=== PATIENT | male | born 1950 | race Caucasian/White ===

== ENCOUNTER → 2017-02-28 | Outpatient (CLI) | payer OTHER ==
--- NOTE | ~2017-02-28 | 24HR ---
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
== END ==
LOC: CV 10:10
DX: I42.2 Other hypertrophic cardiomyopathy (principal)

== ENCOUNTER 2017-11-14 14:52 | Inpatient (IN) | payer OTHER ==
[2017-11-14] VITALS (28 sets, daily range): BP systolic 88–136; BP diastolic 60–115
[~2017-11-14] VITALS: Ht 180.3 cm; Wt 92.6 kg
--- NOTE | ~2017-11-14 | EKG ---
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
--- NOTE | ~2017-11-14 | D ---
[facility] [place] [address] DISCHARGE SUMMARY Name: LATASHA APPLE Room #: 204-P [facility] IN M.R.#: [id number] Admission: 11/14/17 Attend Phys: Nicanor Carlson MD Discharge: 11/25/17 Date of : 52 Report #: [id number] THIS REPORT FOR: //name// CC: FAM unknown Nicanor Carlson Uday Velizen DISCHARGE DIAGNOSES: 1. Sustained ventricular tachycardia. 2. Apical hypertrophic cardiomyopathy. PROCEDURES PERFORMED: 1. VT ablation. 2. Dual chamber [employer] Raul ICD implantation for secondary prevention of sudden cardiac . HISTORY OF PRESENT ILLNESS: The patient is a 67-year-old patient who I have seen in the outpatient setting for consultation for ICD implantation. He has a history of apical hypertrophic cardiomyopathy. 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 At that time, I recommended ICD implantation, but he declined. On the day of admission, the patient called saying that he had been experiencing palpitations for 4 days, which was of new onset. He did not have any presyncope or syncope. When he came into the clinic, he was found to be in sustained wide complex tachycardia and was directly admitted to the ICU. He was in the sustained arrhythmia and was given 12 of adenosine, which interestingly did result in brief termination of the arrhythmia. The patient was monitored in the ICU and taken for an EP study. The EP study demonstrated that the patient was clearly in ventricular tachycardia and a VT ablation was performed using a retroaortic axis. The patient was in sustained VT, and we mapped the VT using a PentaRay catheter, and this was clearly coming from his apical aneurysm. 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 Extensive ablation at the site eventually resulted in termination of the ventricular tachycardia. Pace MAPS at this site were 12/12, but it did not look like I was actually entraining the tachycardia. I think this was likely a focal ventricular tachycardia secondary to triggered automaticity. The ventricular tachycardia would terminate, and then, I would perform ventricular pacing maneuvers or ventricular stimulation and the VT would come back. I would go back to the same location and after a few seconds of burning, the VT would go away. I performed extensive ablations at this location at 50 nunez, but the VT would come back, although it was at times difficult to induce and required up to triple ventricular extrastimuli. I did induce another ventricular arrhythmia that was a ventricular flutter that fortunately I could pace At this point, we [facility] [address] [place] [address] DISCHARGE SUMMARY Name: AMBIKALATASHA Room #: 204-P DIS IN M.R.#: [id number] Admission: 11/14/17 Attend Phys: Nicanor Carlson MD Discharge: 11/25/17 Date of : 52 Report #: [id number] performed extensive ablation, and he was no longer in sustained VT and therefore the procedure was concluded. Of note, I did have issues obtaining venous access into the right femoral vein. I got a sheath into the right femoral vein and performed a venogram, and it appeared that the vein had dissected. So for future procedures, this needs to be taken into account, and plans are to evaluate this in the future as an outpatient. After the ablation, I decided to place the patient on sotalol therapy as I thought that he was high risk of having recurrent arrhythmias, and overnight, he again had recurrent VT. I started him on IV amiodarone and stop the sotalol. Eventually, his rhythm is improved, and he underwent dual chamber [employer] Jose Raul ICD implantation. Post-ICD implant, his chest x-ray is fine. His device was interrogated and found to be functioning normally. The patient did stay in the hospital for a prolonged period of time requiring loading of IV amiodarone. When I would turn off the IV amiodarone, he would have nonsustained VT anywhere from 5-10 beats in duration. On 11/22, I put him back on IV amiodarone at 1 mg per minute continuously and turned this off on 11/23 at 10:00 p.m. and watched him until 11/25. He had been on oral amiodarone 400 b.i.d., and other than ventricular bigeminy and trigeminy, he had no other arrhythmias noted. As such, he was deemed stable for discharge home. He will go home on amiodarone 400 b.i.d. I did discuss that we will need to monitor amiodarone for toxicities including pulmonary, thyroid and liver. The family understands this. I did discuss his case with Dr. Negro at [facility] for further evaluation for advanced therapies. They will schedule an outpatient clinic visit with him next week. I discussed with the patient that I did not want him driving for the time being until we can ensure that his arrhythmias are stable, and we will see him back in clinic next week. <ELECTRONICALLY SIGNED> By: Nicanor Carlson MD 11/25/17 1308 0917 1159 Nicanor Carlson MD /kraig
--- NOTE | ~2017-11-14 | EKG ---
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 Mgr: KEYSHA : 1950 Requested By: Nicanor Carlson Order Number: [id number] MD: Kevon Guerrero Measurements Intervals [place] Rate: 92 P: 11 OH: 220 QRS: 4 QRSD: 113 T: 102 QT: 435 QTc: 539 Interpretive Statements Atrial paced rhythm Frequent PVCs Prolonged OH interval Probable left ventricular hypertrophy Nonspecific T abnrm, anterolateral leads Compared to ECG 11/20/2017 10:19:02 Electronically Signed On 11-22-2017 17:23:25 CDT by Kevon Guerrero [email or web address] <ELECTRONICALLY SIGNED> By: Kevon Guerrero MD 11/22/17 1723 0910 Kevon Guerrero MD /EPI
--- NOTE | ~2017-11-14 | EKG ---
[address] [address] ELECTROCARDIOGRAM REPORT Name: AMBIKALATASHA Room #: 204-P ADM IN M.R.#: [id number] Admission: 11/14/17 Attend Phys: Nicanor Carlson MD Discharge: Date of : 52 Report #: [id number] THIS REPORT FOR: //name// 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
--- NOTE | ~2017-11-14 | 2DMMODE ---
[facility] [address] [place] [address] 2 D/M-MODE ECHOCARDIOGRAM Name: LATASHA APPLE Room #: 247-P ADM IN M.R.#: [id number] Admission: 11/14/17 Attend Phys: Nicanor Carlson Discharge: Date of : 52 Date of Service: 11/15/17 1353 Report #: [id number] THIS REPORT FOR: //name// APPROVED REPORT Study performed: 11/15/2017 11:38:08 EXAM: Comprehensive 2D, Doppler, and color-flow Echocardiogram Patient Location: ICU Room #: [facility] Status: routine BSA: 2.14 HR: 162 bpm BP: 109/94 mmHg Other Information Study Quality: Adequate Indications Atrial Fibrillation Cardiomyopathy 2D Dimensions IVC: 26.00 mm Tricuspid Valve TR Peak Colt.: 2.68 m/s TR Peak Gr.: 28.87 mmHg PA Pressure: 39.00 mmHg Left Ventricle The left ventricle is normal size. There is akinesis in the apical wall. Severe basal septal hypertrophy is present. Left ventricular systolic function is abnormal. There is an increased gradient. Hypertrophic hypertrophy, mid cavity with apical akinesis/aneurysm Unable to assess given tachycardia at 170bpm This study is not technically sufficient to allow evaluation of the LV diastolic function. Right Ventricle The right ventricle is normal size. The right ventricular systolic function is normal. Atria Left atrium is dilated. Right atrium is dilated. [facility] [address] [place] [address] 2 D/M-MODE ECHOCARDIOGRAM Name: LATASHA APPLE Room #: 247-P ADM IN .R.#: [id number] Admission: 11/14/17 Attend Phys: Nicanor Carlson Discharge: Date of : 52 Date of Service: 11/15/17 1353 Report #: [id number] Aortic Valve The aortic valve is normal in structure. No aortic regurgitation is present. There is no aortic valvular stenosis. Mitral Valve The mitral valve is normal in structure. Mild mitral regurgitation. Tricuspid Valve The tricuspid valve is normal in structure. There is mild tricuspid regurgitation. Estimated PAP 39 mmHg. Pulmonic Valve The pulmonary valve is normal in structure. Great Vessels The aortic root is normal in size. IVC is dilated and collapses >50% with inspiration. Pericardium There is no pericardial effusion. <Conclusion> Left ventricular systolic function is abnormal. There is an increased mid cavitary gradient. Hypertrophic hypertrophy, mid cavity with apical akinesis/aneurysm Unable to assess ejection fraction given tachycardia at 170bpm Both atria are dilated. The aortic valve is normal in structure. No aortic valvular stenosis or insufficiency. The mitral valve is normal in structure. Mild mitral regurgitation. There is mild tricuspid regurgitation. Estimated pulmonary artery pressure of 39 mmHg. There is no pericardial effusion. <ELECTRONICALLY SIGNED> By: Juice Lopez MD, [facility] 11/15/17 1353 1353 135 Juice Lopez MD, [facility] /INF
--- NOTE | ~2017-11-14 | P ---
[facility] [place] [address] PROCEDURE REPORT Name: LATASHA APPLE Room #: 204-P [facility] IN M.R.#: [id number] Admission: 11/14/17 Attend Phys: Nicanor Carlson MD Discharge: Date of : 52 Report #: [id number] THIS REPORT FOR: //name// CC: FAM unknown Nicanor Fraga TYPE OF REPORT: ICD implantation. PREOPERATIVE DIAGNOSES: 1. Hypertrophic cardiomyopathy. 2. Supraventricular tachycardia. 3. Sinus bradycardia. HISTORY: The patient is a 67-year-old male with a history of apical hypertrophic cardiomyopathy with evidence of an apical aneurysm and extensive myocardial fibrosis on a prior cardiac MRI back in March of 2017. He presented with sustained ventricular tachycardia. This was sustained for multiple days. He underwent ablation with termination of the ventricular arrhythmias. He had other inducible arrhythmias induced at the time of that procedure. He is here for a dual-chamber ICD implantation for secondary prevention of sudden cardiac . ANESTHESIA: The patient underwent MAC anesthesia with no anesthesia related complications. DESCRIPTION OF PROCEDURE: The patient underwent informed consent, was discussed the details of the procedure including the risk, which include, but not limited to bleeding, infection, vascular damage, cardiac perforation and pneumothorax. He understood these risks and was willing to proceed. As such, the patient was brought to the EP Laboratory in a fasting and sedated state and prepped and draped in a sterile fashion. He underwent a venogram showing patency of the left axillary vein. He received IV vancomycin for antibiotic prophylaxis. Next, I injected lidocaine below the level of left clavicle and incision was made. A pocket was created over the prepectoral fascia and access was obtained twice the left axillary vein using the extrathoracic approach with sheaths positioned using the modified Seldinger technique. Next, under fluoroscopy, a dual coil ICD lead and atrial lead were positioned into the right ventricular apex and right atrial appendage respectively. Both leads demonstrated adequate pacing and sensing thresholds. The leads were sutured to the prepectoral fascia. The device was connected. Pocket was irrigated with vancomycin and the pocket was closed in 3 layers and surgical glue was placed in the skin layer. There is no significant bleeding and no complications. [address] [address] PROCEDURE REPORT Name: LATASHA APPLE Room #: 204-P [facility] IN M.R.#: [id number] Admission: 11/14/17 Attend Phys: Nicanor Carlson MD Discharge: Date of : 52 Report #: [id number] DEVICE INTERROGATION: The implanted defibrillator was a [employer] model #[id number], serial #[id number]. The atrial lead was a [employer] model #[id number], 52 cm, serial #[id number]. The RV lead was a [employer] model #7120Q, 65 cm, serial #[id number]. The device was programmed to the DDD 60-130 mode. A VT monitor zone was programmed from 132-190 beats per minute. VT zone was programmed from 190-240 beats per minute with ATP while charging followed by max output shocks. The VF zone was programmed at greater than 240 beats per minute with ATP while charging followed by max output shocks. CONCLUSIONS: 1. Successful ICD implantation. 2. Satisfactory atrial and ventricular pacing and sensing thresholds. <ELECTRONICALLY SIGNED> By: Nicanor Carlson MD 11/21/17 1328 1650 0008 Nicanor Carlson MD /nt
--- NOTE | ~2017-11-14 | 2DMMODE ---
[facility] [address] [place] [address] 2 D/M-MODE ECHOCARDIOGRAM Name: LATASHA APPLE Room #: 204-P [facility] IN ..#: [id number] Admission: 11/14/17 Attend Phys: Nicanor Carlson Discharge: Date of : 52 Date of Service: 11/24/17 0946 Report #: [id number] THIS REPORT FOR: //name// APPROVED REPORT Study performed: 11/24/2017 08:05:38 EXAM: Comprehensive 2D, Doppler, and color-flow Echocardiogram Patient Location: Bedside Room #: 204 Status: routine BSA: 2.12 BP: 144/79 mmHg Other Information Study Quality: Good Indications Pacemaker VT and hypertrophic cardiomyopathy, evaluate EF post VT ablation 2D Dimensions RVDd: 45.72 mm LVEF(%): 30.20 (>50%) IVSd: 11.18 (7-11mm) LVOT Diam: 21.55 (18-24mm) LVDd: 47.90 mm PWd: 9.68 (7-11mm) Ascending Ao: 31.49 (22-36mm) LVDs: 41.11 (25-40mm) Aortic Root: 32.75 mm IVC: 19.00 mm Liriano's LVEF: 30.20 % Volumes Left Atrial Volume (Systole) Single Plane 4CH: 63.76 mL Single Plane 2CH: 86.51 mL LA ESV Index: 38.00 mL/m2 Aortic Valve AoV Peak Colt.: 1.38 m/s AO Peak Gr.: 7.66 mmHg LVOT Max P.53 mmHg LVOT Max V: 1.18 m/s WANDA Vmax: 3.10 cm2 Mitral Valve E/A Ratio: 0.7 MV Decel. Time: 250.27 ms [facility] [place] [address] 2 D/M-MODE ECHOCARDIOGRAM Name: LATASHA APPLE Room #: 204-P [facility] IN M.R.#: [id number] Admission: 11/14/17 Attend Phys: Nicanor Carlson Discharge: Date of : 52 Date of Service: 11/24/17 0946 Report #: [id number] MV E Max Colt.: 0.52 m/s MV A Colt.: 0.71 m/s MV PHT: 72.58 ms IVRT: 87.66 ms Pulmonary Valve PV Peak Colt.: 1.01 m/s PV Peak Gr.: 4.13 mmHg Pulmonary Vein P Vein S: 0.50 m/s P Vein A: 0.36 m/s P Vein D: 0.44 m/s P Vein A Dur.: 120.0 msec P Vein S/D Ratio: 1.14 Tricuspid Valve TR Peak Colt.: 2.19 m/s RAP Estimate: 5.00 mmHg TR Peak Gr.: 19.13 mmHg PA Pressure: 24.00 mmHg Left Ventricle Left ventricle is grossly normal size. Echo findings are consistent with hypertrophic cardiomyopathy. Mid-cavitary gradient is present. Max resting gradient is 37 mmHg and mean resting gradient of 16 mmHg, with valsalva max gradient increased to 49 mmHg with mean of 23 mmHg. Mid cavity hypertrophy with obliteration, apical akinesis/anreurysm Left ventricular systolic function is moderately decreased. LVEF 45%. Transmitral Doppler flow pattern suggests impaired LV relaxation. Right Ventricle The right ventricle is normal size. The right ventricular systolic function is normal. Atria The left atrium size is normal. The right atrium size is normal. Aortic Valve The aortic valve is normal in structure. Trace aortic regurgitation. There is no aortic valvular stenosis. Mitral Valve The mitral valve is normal in structure. Mild to moderate mitral regurgitation. No evidence of mitral valve stenosis. Tricuspid Valve The tricuspid valve is normal in structure. Trace to mild tricuspid [facility] [address] [place] [address] 2 D/M-MODE ECHOCARDIOGRAM Name: LATASHA APPLE Room #: 204-P [facility] IN .R.#: [id number] Admission: 11/14/17 Attend Phys: Nicanor Carlson Discharge: Date of : 52 Date of Service: 11/24/17 0946 Report #: [id number] regurgitation. PAP is estimated at 24 mmHg. Pulmonic Valve Pulmonic valve is not well visualized. Great Vessels The aortic root is normal in size. IVC is normal in size and collapses >50% with inspiration. Pericardium There is no pericardial effusion. <Conclusion> Left ventricular systolic function is moderately decreased. LVEF 45%. Mid-cavitary gradient is present. Max resting gradient is 37 mmHg and mean resting gradient of 16 mmHg, with valsalva max gradient increased to 49 mmHg with mean of 23 mmHg. Mid cavity hypertrophy with obliteration, apical akinesis/aneurysm. Findings are consistent with apical hypertrophic cardiomyopathy. The aortic valve is normal in structure. Trace aortic regurgitation, no stenosis. The mitral valve is normal in structure. Mild to moderate mitral regurgitation. Trace to mild tricuspid regurgitation. Pulmonary artery pressure estimated at 24 mmHg. There is no pericardial effusion. <ELECTRONICALLY SIGNED> By: Juice Lopez MD, FACC 11/24/17945 5 5 Juice Lopez MD, FACC /INF
--- NOTE | ~2017-11-14 | H ---
[facility] [place] [address] HISTORY AND PHYSICAL Name: LATASHA APPLE Room #: 204-P ADM IN M.R.#: [id number] Admission: 11/14/17 Attend Phys: Nicanor Carlson MD Discharge: Date of : 52 Report #: [id number] THIS REPORT FOR: //name// CC: FAM unknown Nicanor Fraga DATE OF SERVICE: 11/14/2017 REASON FOR ADMISSION: SVT. 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 At that time, he was noted to have a gradient that measured 55-60 mmHg. In February of 2017, he had an EF of 50%-55% with apical akinesis and an aneurysm and a peak gradient of 27. He has worn cardiac monitors in the past, which have shown some nonsustained VT. He also has a mother who of sudden in her sleep. He also has a sister who has a son who has hypertrophic cardiomyopathy with recurrent syncopal episodes. Back in March of 2017, I had the patient undergo a cardiac MRI, which demonstrated severe apical and eccentric LVH with a pattern consistent with hypertrophic cardiomyopathy. There was also a small area of apical ballooning and thinning with dyskinesia. There was also evidence of delay imaging after gadolinium demonstrating widespread extensive diffuse transmural hyperenhancement throughout, portions of the [id number]-zn-waafgi anterior septum and in the apical wall and posterior lateral apex. The EF was noted to be 69% on this MRI. The maximal interventricular septal measurements were 2.8 cm. The patient called in today reporting that he has been experiencing palpitations with some lightheadedness since Tuesday. As such, I had him come into my office and he appeared to be in a supraventricular tachycardia versus atrial flutter. His rates were in the 170s. I made the patient a direct admit and sent him to the CCU. We hooked him up to a 12-lead EEG with continuous rhythm strip. I pushed 12 of adenosine and this resulted in termination of the tachycardia with immediate return to SVT. After approximately 10 seconds. When he is in the SVT, there are PVCs noted as well during the SVT. It appears that the SVT was induced by these PVCs. He would also have spontaneous termination of the SVT and the tachycardia would be narrow and then would aberrate. There is no clear change in the heart rate with the aberration. I could also easily terminate the tachycardia with a carotid massage either via the right or left neck but then after a few seconds, it would go back into SVT. REVIEW OF SYSTEMS: A 12-point review of systems was performed and he denies any chest pain. He has had some shortness of breath but no PND or orthopnea. Otherwise, 12-point review of systems was normal. [address] [address] HISTORY AND PHYSICAL Name: AMBIKALATASHA Room #: 204-P ADM IN M.R.#: [id number] Admission: 11/14/17 Attend Phys: Nicanor Carlson MD Discharge: Date of : 52 Report #: [id number] PAST MEDICAL HISTORY: As mentioned above. SOCIAL HISTORY: Does not smoke. FAMILY HISTORY: As mentioned above. Mother had cardiac arrest in the middle of the night. ALLERGIES: No known drug allergies. MEDICATIONS: Have been reviewed and he is currently on a diltiazem drip. At home, he is on atorvastatin and metoprolol 50 mg a day. PHYSICAL EXAMINATION: VITAL SIGNS: Temperature is 37.2, pulse is anywhere from 60s-180s, respiration is 20, blood pressure 128/97 and sats are 93% on room air. GENERAL: He is in no acute distress. HEENT: Oropharynx is clear. NECK: Supple. No thyromegaly. HEART: Tachycardic and regular. LUNGS: Clear to auscultation bilaterally. ABDOMEN: Soft, nontender and nondistended with no hepatosplenomegaly. EXTREMITIES: No clubbing, cyanosis or edema. NEUROLOGICAL: Cranial nerves 2 through 12 are intact. LABORATORY DATA: White count 8.3, hemoglobin 14 and platelets 185. Sodium 139, potassium 4.1, BUN 16, creatinine 1.0 and glucose 112. ASSESSMENT: 1. Supraventricular tachycardia. 2. Apical hypertrophic cardiomyopathy. PLAN: In summary, the patient is in incessant SVT that I cannot terminate with a carotid massage or adenosine for more than a few seconds. As such, he will be placed as an inpatient and we will start him on an IV diltiazem drip. We have discussed that given his incessant SVT that he will require an SVT ablation on Tuesday. We have discussed the details of this procedure including the risks, which include but not limited to bleeding, vascular damage and cardiac perforation as well as stroke or [place]. He understands these risks and is willing to proceed. We will proceed with an echocardiogram tomorrow in terms of his apical hypertrophic cardiomyopathy. I previously documented our extensive discussions regarding this issue. He does have a history of nonsustained VT as well as a family member with sudden cardiac and he does have extensive myocardial enhancement suggestive of an apical scarring. Based on these findings, I have recommended that he undergo ICD implantation for primary prevention of sudden cardiac . At our last visit, he still wanted to [facility] [address] [place] [address] HISTORY AND PHYSICAL Name: LATASHA APPLE Room #: 204-P ADM IN M.R.#: [id number] Admission: 11/14/17 Attend Phys: Nicanor Carlson MD Discharge: Date of : 52 Report #: [id number] rethink this, but I will readdress this with him while he is in the hospital and we can consider this in the near future. <ELECTRONICALLY SIGNED> By: Nicanor Carlson MD 11/21/17 1329 1652 1715 Nicanor Carlson MD /nt
--- NOTE | ~2017-11-14 | EKG ---
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1950 Requested By: Nicanor Carlson Order Number: [id number] MD: Juice Lopez Measurements Intervals [place] Rate: 147 P: SC: QRS: -113 QRSD: 153 T: 23 QT: 360 QTc: 564 Interpretive Statements Sinus rhythm with paroxysmal ventricular tachycardia Compared to ECG 11/14/2017 15:10:07 Occasional sinus beats are now present Electronically Signed On 11-17-2017 8:06:29 CDT by Juice Lopez [email or web address] <ELECTRONICALLY SIGNED> By: Juice Lopez MD, [facility] 11/17/17 0806 24 Juice Lopez MD, [facility] /EPI
--- NOTE | ~2017-11-14 | EKG ---
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
--- NOTE | ~2017-11-14 | EKG ---
[place] [address] [address] [facility] [employer] [address] ELECTROCARDIOGRAM REPORT Name: JUICELATASHA Room #: 247-P ADM IN M.R.#: [id number] Admission: 11/14/17 Attend Phys: Nicanor Carlson MD Discharge: Date of : 52 Report #: [id number] THIS REPORT FOR: //name// [facility] Test Date: 2017-11-14 Test Time: 15:10:07 Pat Name: LATASHA APPLE Department: Room: 200 I Gender: M Decontaminator: Harrison ARROYO : 1950 Requested By: Nicanor Carlson Order Number: [id number] MD: Juice Lopez Measurements Intervals [place] Rate: 173 P: 0 CA: QRS: -83 QRSD: 115 T: 71 QT: 309 QTc: 525 Interpretive Statements Supraventricular tachycardia right bundle branch block Baseline wander in lead(s) V2 No previous ECG available for comparison Electronically Signed On 11-15-2017 8:39:26 CDT by Juice Lopez [email or web address] <ELECTRONICALLY SIGNED> By: Juice Lopez MD, [facility] 11/15/17 0839 09 09 Juice Lopez MD, [facility] /EPI
--- NOTE | ~2017-11-14 | EKG ---
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: NAV : 1950 Requested By: Nicanor Carlson Order Number: [id number] MD: Juice Lopez Measurements Intervals [place] Rate: 102 P: NV: 215 QRS: 0 QRSD: 112 T: 243 QT: 396 QTc: 516 Interpretive Statements Atrial-paced complexes Paired ventricular premature complexes Prolonged NV interval Poor R wave progression Nonspecific intraventricular conduction delay Compared to ECG 11/17/2017 07:57:01 Ventricular tachycardia is no longer present Electronically Signed On 11-21-2017 17:00:20 CDT by Juice Lopez [email or web address] <ELECTRONICALLY SIGNED> By: Juice Lopez MD, [facility] 11/21/17 1700 1019 1019 Juice Lopez MD, [facility] /EPI
[2017-11-14 15:31] LABS: HEMATOCRIT 42.9 % (42.0-52.0); HEMOGLOBIN 14.6 gm/dL (14.0-18.0); MCH 31.3 pg (26.0-34.0); MCHC 33.9 g/dL (28.0-37.0); MCV 92.2 fL (80.0-100.0); RBC 4.66 mil/uL (4.50-6.00); RDW 13.5 % (10.5-14.5); WBC 8.3 thou/uL (4.0-11.0)
[2017-11-14 15:39] LABS: CALCIUM 9.3 mg/dL (8.5-10.1); POTASSIUM 4.1 mmol/L (3.5-5.1)
[2017-11-14] MEDS ORDERED: LIPITOR10 MG PO (15:40)
[2017-11-14] MEDS ORDERED: TOPROL XL25 MG PO (15:40)
[2017-11-15] VITALS (43 sets, daily range): BP systolic 77–130; BP diastolic 39–115
[2017-11-16] VITALS (19 sets, daily range): BP systolic 98–131; BP diastolic 75–102
[2017-11-16 04:58] LABS: HEMOGLOBIN 14.3 gm/dL (14.0-18.0); MCH 31.4 pg (26.0-34.0); MCHC 33.9 g/dL (28.0-37.0); MCV 92.6 fL (80.0-100.0); RBC 4.54 mil/uL (4.50-6.00); RDW 13.7 % (10.5-14.5); WBC 8.3 thou/uL (4.0-11.0)
[2017-11-16 05:10] LABS: PROTIME 10.7 Seconds (9.3-11.4)
[2017-11-16 05:11] LABS: ALBUMIN 3.5 g/dL (3.4-5.0); CALCIUM 8.5 mg/dL (8.5-10.1); POTASSIUM 3.9 mmol/L (3.5-5.1); TOTAL PROTEIN 6.4 g/dL (6.4-8.2)
[2017-11-17] VITALS (16 sets, daily range): BP systolic 109–160; BP diastolic 70–144
[2017-11-18] VITALS (18 sets, daily range): BP systolic 122–164; BP diastolic 83–113
[2017-11-19] VITALS (7 sets, daily range): BP systolic 134–167; BP diastolic 80–104
[2017-11-20 03:40] VITALS: BP 145/86
[2017-11-20 07:28] VITALS: BP 150/99
[2017-11-20 11:59] VITALS: BP 157/79
[2017-11-20 12:28] LABS: ABSOLUTE NEUTROPHILS 8.2 thou/uL (1.4-8.2); BASOPHILS 0.4 % (0.0-2.0); EOSINOPHILS 0.8 % (0.0-3.0); HEMATOCRIT 38.5 % (42.0-52.0); HEMOGLOBIN 13.7 gm/dL (14.0-18.0); LYMPHOCYTES 12.4 % (24.0-44.0); MCH 31.8 pg (26.0-34.0); MCHC 35.6 g/dL (28.0-37.0); MCV 89.4 fL (80.0-100.0); MONOCYTES 11.1 % (1.0-8.0); PLATELET COUNT 133 thou/uL (150-400); POLYS 75.3 % (36.0-66.0); RBC 4.31 mil/uL (4.50-6.00); RDW 13.4 % (10.5-14.5); WBC 10.9 thou/uL (4.0-11.0)
[2017-11-20 12:31] LABS: CALCIUM 8.6 mg/dL (8.5-10.1); POTASSIUM 3.6 mmol/L (3.5-5.1)
[2017-11-20 16:00] VITALS: BP 140/86
[2017-11-20 19:25] VITALS: BP 150/92
[2017-11-21 03:30] VITALS: BP 150/98
[2017-11-21 11:20] VITALS: BP 138/89
[2017-11-21 15:20] VITALS: BP 146/98
[2017-11-21 20:31] VITALS: BP 165/98
[2017-11-22 00:30] VITALS: BP 137/93
[2017-11-22 04:43] VITALS: BP 150/88
[2017-11-22 07:22] VITALS: BP 129/91
[2017-11-22 10:18] LABS: HEMATOCRIT 39.3 % (42.0-52.0); HEMOGLOBIN 14.2 gm/dL (14.0-18.0); MCHC 36.1 g/dL (28.0-37.0); MCV 88.6 fL (80.0-100.0); PLATELET COUNT 136 thou/uL (150-400); RBC 4.43 mil/uL (4.50-6.00); RDW 13.5 % (10.5-14.5); WBC 10.1 thou/uL (4.0-11.0)
[2017-11-22 10:32] LABS: CALCIUM 9.2 mg/dL (8.5-10.1); POTASSIUM 3.6 mmol/L (3.5-5.1)
[2017-11-22 11:32] VITALS: BP 134/91
[2017-11-22 12:32] LABS: ABSOLUTE NEUTROPHILS 8.1 thou/uL (1.4-8.2); ATYPICAL LYMPHS 1 %
[2017-11-22 15:28] VITALS: BP 141/82
[2017-11-22 19:24] VITALS: BP 148/76
[2017-11-23 04:26] VITALS: BP 138/93
[2017-11-23 07:38] VITALS: BP 141/83
[2017-11-23 11:49] VITALS: BP 147/78
[2017-11-23 15:11] VITALS: BP 142/75
[2017-11-23 20:01] VITALS: BP 160/73
[2017-11-24 05:03] VITALS: BP 144/79
[2017-11-24 07:51] VITALS: BP 131/80
[2017-11-24 09:48] LABS: ABSOLUTE NEUTROPHILS 7.1 thou/uL (1.4-8.2); BASOPHILS 0.4 % (0.0-2.0); EOSINOPHILS 1.4 % (0.0-3.0); HEMATOCRIT 39.4 % (42.0-52.0); HEMOGLOBIN 14.1 gm/dL (14.0-18.0); LYMPHOCYTES 14.3 % (24.0-44.0); MCH 31.6 pg (26.0-34.0); MCHC 35.8 g/dL (28.0-37.0); MCV 88.2 fL (80.0-100.0); MONOCYTES 5.9 % (1.0-8.0); PLATELET COUNT 178 thou/uL (150-400); RBC 4.47 mil/uL (4.50-6.00); RDW 13.7 % (10.5-14.5); WBC 9.1 thou/uL (4.0-11.0)
[2017-11-24 09:56] LABS: CALCIUM 8.8 mg/dL (8.5-10.1); CREATININE 1.2 mg/dL (0.7-1.3); POTASSIUM 3.5 mmol/L (3.5-5.1)
[2017-11-24 11:25] VITALS: BP 144/89
[2017-11-24 15:32] VITALS: BP 151/91
[2017-11-24 19:17] VITALS: BP 151/94
[2017-11-25 04:21] VITALS: BP 132/92
[2017-11-25 08:38] VITALS: BP 166/81
[2017-11-25] MEDS ORDERED: PACERONE 200 M200 M1 PO (08:58)
[2017-11-25] MEDS ORDERED: ASPIRIN325 PO (09:00)
[2017-11-25 10:06] VITALS: BP 166/81
== END 2017-11-25 10:30 | disposition home or self-care (01) | DRG 227 ==
LOC: 2N 14:52 → ICU 14:52 → 2N 11-18 18:18 → ENTRNSPT 11-25 10:17 → EDTRNSPTSTS 11-25 10:24 → 2N 11-25 10:30
PROVIDERS: Internal Medicine Cardiovascular Disease; Nurse Practitioner Gerontology
DX: I47.1 Supraventricular tachycardia (principal); I42.2 Other hypertrophic cardiomyopathy; R00.1 Bradycardia, unspecified; E78.00 Pure hypercholesterolemia, unspecified; Z82.41 Family history of sudden cardiac death; Z79.899 Other long term (current) drug therapy

== ENCOUNTER 2018-02-08 09:19 | Emergency (ER) | payer OTHER ==
[~2018-02-08] VITALS: Ht 180.3 cm; Wt 93.0 kg
[~2018-02-08 09:19] MED LIST: ASPIRIN325 PO; LIPITOR10 MG PO; PACERONE 200 M200 M1 PO; TOPROL XL25 MG PO
== END 2018-02-08 10:32 | disposition home or self-care (01) ==
LOC: ER 09:19
DX: R04.0 Epistaxis (principal); E78.5 Hyperlipidemia, unspecified

== ENCOUNTER → 2019-08-02 | Outpatient (CLI) | payer OTHER | LOC: SJCVC 13:47 | DX: R94.31 Abnormal electrocardiogram [ECG] [EKG] (principal); I42.1 Obstructive hypertrophic cardiomyopathy; E78.5 Hyperlipidemia, unspecified; I10 Essential (primary) hypertension; I63.12 Cerebral infarction due to embolism of basilar artery; Z95.810 Presence of automatic (implantable) cardiac defibrillator ==

== ENCOUNTER → 2020-02-21 | Outpatient (CLI) | payer OTHER | LOC: SJCVCIMAG 09:46 | PROVIDERS: ATTEND Internal Medicine | DX: I08.3 Combined rheumatic disorders of mitral, aortic and tricuspid valves (principal); R94.31 Abnormal electrocardiogram [ECG] [EKG]; I11.9 Hypertensive heart disease without heart failure; I42.1 Obstructive hypertrophic cardiomyopathy; E78.5 Hyperlipidemia, unspecified; I48.0 Paroxysmal atrial fibrillation; I47.2 Ventricular tachycardia; I63.12 Cerebral infarction due to embolism of basilar artery; Z95.820 Peripheral vascular angioplasty status with implants and grafts; Z79.899 Other long term (current) drug therapy ==

== ENCOUNTER → 2020-08-26 | Outpatient (CLI) | payer OTHER | LOC: SJCVC 14:32 | PROVIDERS: ATTEND Internal Medicine Cardiovascular Disease | DX: R94.31 Abnormal electrocardiogram [ECG] [EKG] (principal); I42.1 Obstructive hypertrophic cardiomyopathy; E78.5 Hyperlipidemia, unspecified; I10 Essential (primary) hypertension; I48.0 Paroxysmal atrial fibrillation; I47.2 Ventricular tachycardia; I63.12 Cerebral infarction due to embolism of basilar artery; Z95.810 Presence of automatic (implantable) cardiac defibrillator; Z86.73 Personal history of transient ischemic attack (TIA), and cerebral infarction without residual deficits; Z79.01 Long term (current) use of anticoagulants; Z79.899 Other long term (current) drug therapy; Z72.89 Other problems related to lifestyle ==

== ENCOUNTER → 2021-02-25 | Outpatient (CLI) | payer OTHER | LOC: SJCVC 13:24 | PROVIDERS: ATTEND Internal Medicine Cardiovascular Disease | DX: R94.31 Abnormal electrocardiogram [ECG] [EKG] (principal); I44.0 Atrioventricular block, first degree; I42.1 Obstructive hypertrophic cardiomyopathy; I47.2 Ventricular tachycardia; I42.2 Other hypertrophic cardiomyopathy; Z95.810 Presence of automatic (implantable) cardiac defibrillator; Z79.899 Other long term (current) drug therapy; Z79.01 Long term (current) use of anticoagulants; Z72.89 Other problems related to lifestyle ==

== ENCOUNTER → 2021-03-17 | Outpatient (CLI) | payer OTHER | LOC: SJCVC 13:57 | PROVIDERS: ATTEND Internal Medicine | DX: R94.31 Abnormal electrocardiogram [ECG] [EKG] (principal); I44.0 Atrioventricular block, first degree; I42.1 Obstructive hypertrophic cardiomyopathy; E78.5 Hyperlipidemia, unspecified; I10 Essential (primary) hypertension; I48.0 Paroxysmal atrial fibrillation; I47.2 Ventricular tachycardia; I63.12 Cerebral infarction due to embolism of basilar artery; I25.10 Atherosclerotic heart disease of native coronary artery without angina pectoris; G45.9 Transient cerebral ischemic attack, unspecified; Z79.01 Long term (current) use of anticoagulants; Z79.899 Other long term (current) drug therapy; Z95.810 Presence of automatic (implantable) cardiac defibrillator; Z72.89 Other problems related to lifestyle; Z82.49 Family history of ischemic heart disease and other diseases of the circulatory system ==